=== PATIENT | female | born 1960 | race Asian ===

== ENCOUNTER → 2017-07-12 | Outpatient (CLI) | END | disposition home or self-care (01) ==

== ENCOUNTER 2018-01-24 09:56 | Day surgery (SDC) | END 2018-01-24 16:23 | disposition home or self-care (01) ==

== ENCOUNTER 2018-11-18 07:28 | Day surgery (SDC) | payer OTHER ==
[2018-11-18] VITALS (12 sets, daily range): BP systolic 101–144; BP diastolic 59–94; PULSE 75–90; RESP 16–23; Ht 157.5 cm; Wt 73.0 kg
[~2018-11-18] VITALS: Ht 157.5 cm; Wt 73.0 kg
[~2018-11-18 07:28] MED LIST: AMLO5TAB4 PO; ASPI-817 PO; ASPI81TA52 PO; CALC600T5 PO; CEFAZOLIN 2 GM/50 ML (PMX) 50 ML IVPB ONE; HYDR25TA6 PO; METF500T24 PO; MULT-860 PO; SIMV20TA PO; SOD CHLORIDE 0.9% 1,000 ML IV SCH
--- NOTE | 2018-11-18 11:28 | PREAC ---
Date/Time of Note Date/Time of Note DATE: 11/18/18 TIME: 11:26 Anesthesia Eval and Record Evaluation Time Pre-Procedure Interview DATE: 11/18/18 TIME: 11:26 Age 58 Sex female NPO: 8 hrs Preoperative diagnosis posterior cervical mass Planned procedure excision posterir cervical mass Past Medical History Past Medical History: Includes Cardio: HTN Endo: Diabetes Surgery & Anesthesia Issues No known issue Meds Anticoagulation: No Beta Sabine within 24 hr: No Reason Beta Sabine not given: Pt. not on B-Sabine Reported Medications Calcium Carbonate (CALCIUM) 600 Mg Tablet, 600 MG PO DAILY, TAB 11/18/18 Mu-Vits-Min Th/Lycopene/Lutein (CENTRUM SILVER TABLET) 1 Each Tablet, 1 EACH PO DAILY, TAB 11/18/18 Aspirin* (Aspirin* EC) 81 Mg Tablet.dr, 81 MG PO DAILY, TAB 11/18/18 Simvastatin* (Zocor*) 20 Mg Tablet, 20 MG PO QHS, #30 TAB 11/18/18 Metformin Hcl* (Metformin Hcl*) 500 Mg Tablet, 500 MG PO WITH BREAKFAST, #30 TAB 11/18/18 Hydrochlorothiazide* (Hydrochlorothiazide*) 25 Mg Tab, 25 MG PO DAILY, #30 TAB 11/18/18 Amlodipine Besylate* (Norvasc*) 5 Mg Tablet, 5 MG PO DAILY, TAB 11/18/18 Discontinued Reported Medications Aspirin (Low Dose Aspirin) 81 Mg Tablet.dr, 81 MG PO DAILY, #30 TAB 01/24/18 Hydrochlorothiazide* (Hydrochlorothiazide*) 25 Mg Tab, 25 MG PO DAILY, #30 TAB 01/24/18 Amlodipine Besylate* (Norvasc*) 5 Mg Tablet, 5 MG PO DAILY, TAB 01/24/18 Current Medications Sodium Chloride 1,000 ml @ 75 mls/hr [id number] IV ; Start 11/18/18 at 07:00 Meds reviewed: Yes Allergies Coded Allergies: No Known Allergy (Unverified , 11/18/18) Allergies Reviewed: Yes Labs/Studies Labs Reviewed: Reviewed by anesthesiologist test: N/A Studies: ECG Pre-procedure Exam Last vitals Vital Signs Date Temp Pulse Resp B/P (MAP) Pulse Ox O2 O2 Flow FiO2 Time Delivery Rate 11/18/18 98.0 75 16 144/94 95 Room Air 09:49 (111) Airway: Adequate mouth opening Mallampati: Mallampati I Teeth: Normal Lung: Normal Heart: Normal ASA Physical Status ASA physical status: 2 Emergency: None Planned Anesthetic General/MAC: MAC Planned Pain Management Parenteral pain med Pre-operative Attestations Prior to commencing anesthesia and surgery, the patient was re-evaluated, there was verification of: *The patient's identity *The results of appropriate recent lab work and preoperative vital signs *The above evaluation not changing prior to induction *Anesthetic plan, risk benefits, alternative and complications discussed with patient/family; questions answered; patient/family understands, accepts and wishes to proceed. JUAN JOSÉ JOHNSON MD Nov 18, 2018 11:28
[2018-11-18] MEDS ORDERED: FENTAnyl 50 MCG/ML VIAL IV PRN ×3 (11:30)
[2018-11-18] MEDS ORDERED: hydrALAzine 20 MG INJ IV PRN (11:30)
[2018-11-18] MEDS ORDERED: ONDANSETRON 4 MG INJ IV PRN (11:30)
[2018-11-18] MEDS ORDERED: LABETALOL HCL 20MG INJ IV PRN (11:30)
[2018-11-18] MEDS ORDERED: BUPIVACAINE 0.5%/EPI (SDV) 30 ML INJ ONE (11:35)
[2018-11-18] MEDS ORDERED: MIDAZOLAM 1 MG/ML 2 ML INJ ONE (11:47)
[2018-11-18] MEDS ORDERED: PROPOFOL 20 ML ONE (11:47)
[2018-11-18] MEDS ORDERED: CEFAZOLIN 1 GM INJ ONE (11:55)
[2018-11-18] MEDS ORDERED: METOCLOPRAMIDE 10 MG INJ ONE (11:55)
[2018-11-18] MEDS ORDERED: FENTAnyl 50 MCG/ML VIAL ONE (12:02)
--- NOTE | 2018-11-18 12:54 | SIPON ---
Date/Time of Note Date/Time of Note DATE: 11/18/18 TIME: 12:48 Operative Report Preoperative Diagnosis Subcutaneous cystic mass posterior cervical region Postoperative Diagnosis Same Operation/Procedure Performed Excision of subcutaneous cystic mass posterior cervical region Surgeon see signature line inventory control assistant Dr Wiseman Anesthesia: general Estimated blood loss: 0 - 10 ml's Transfusion Required none Specimen Cystic mass posterior cervical region Grafts/Implants none Complications none EVANGELIST HARRIS MD Nov 18, 2018 12:54
--- NOTE | 2018-11-18 17:04 | OPR ---
DATE OF OPERATION: 11/18/2018 PREOPERATIVE DIAGNOSIS: Subcutaneous cystic mass, posterior cervical region. POSTOPERATIVE DIAGNOSIS: Subcutaneous cystic mass, posterior cervical region. OPERATION PERFORMED: Excision of subcutaneous cystic mass, posterior cervical region. ANESTHESIA: IV sedation with local. ANESTHESIOLOGIST: Sheree Santana MD SURGEON: Agustin Melara MD CARDIOPULMONARY SUPERVISOR: Dr. Wiseman. INDICATIONS FOR PROCEDURE: The patient is a 58-year-old female who noticed an enlarging mass in subc utaneous location of her posterior neck. She was seen in surgical consultation. Findings were consi stent with probable epidermal inclusion cyst. She consented for surgery and was scheduled. DESCRIPTION OF PROCEDURE: The patient was brought to the operating theater, placed in the prone posi tion. The posterior cervical region was shaved, prepped and draped in the usual sterile fashion. Th e patient was given IV sedation and then the area surrounding the cystic mass was infiltrated with 0. 5% Marcaine local anesthetic with epinephrine. After regional anesthesia had been obtained, a 3-cm i ncision was made directly over the mass. Subcutaneous tissue was dissected with combination of sharp dissection and cautery. Deep in the subcutaneous space was well-circumscribed, encapsulated mass co nsistent with an epidermal inclusion cyst. It was meticulously dissected from surrounding tissue, re moved and sent for permanent pathologic analysis. The wound was irrigated with Betadine. Minimal bl eeding was controlled with cautery, and the skin was reapproximated with a deep dermal layer of 4-0 V icryl sutures in interrupted fashion, followed by final skin approximation with 5-0 PDS sutures in montoya bcuticular fashion. The patient tolerated procedure well. ESTIMATED BLOOD LOSS: Approximately 5 mL. COMPLICATIONS: There were no complications. DISPOSITION: The patient was transported in stable condition to the recovery room. Dictated By: AGUSTIN AGUILAR/GENNY Conf#: [id number] DID#: [id number]
--- NOTE | 2018-11-19 09:43 | PAC ---
Date/Time of Note Date/Time of Note DATE: 11/19/18 TIME: 09:43 Post-Anesthesia Notes Post-Anesthesia Note Last documented vital signs Vital Signs Date Temp Pulse Resp B/P (MAP) Pulse Ox O2 O2 Flow FiO2 Time Delivery Rate 11/18/18 98.9 89 16 114/60 95 Room Air 13:50 (78) Activity: WNL Respiratory function: WNL Cardiovascular function: WNL Mental status: Baseline Pain reasonably controlled: Yes Hydration appropriate: Yes Nausea/Vomiting absent: No JUAN JOSÉ JOHNSON MD Nov 19, 2018 09:43
== END 2018-11-18 14:20 | disposition home or self-care (01) ==
LOC: SDS 07:28
PROVIDERS: ATTEND Surgery Surgical Oncology
DX: L72.0 Epidermal cyst (principal); I10 Essential (primary) hypertension; E11.9 Type 2 diabetes mellitus without complications; Z79.84 Long term (current) use of oral hypoglycemic drugs
CPT/HCPCS: 21552; 82962; 88307; J0690; J2250; J2765; J3010; Z7512; Z7610; J7030